=== PATIENT | female | born 1955 | race Caucasian/White ===

== ENCOUNTER → 2016-05-07 | Outpatient (CLI) | payer OTHER ==
--- NOTE | 2016-05-07 16:44 | MR ---
Unenhanced MRI of the Lumbar Spine Clinical History: 60-year-old female with pain and weakness in the right leg, and pain in both hips w ith diminished mobility. Evaluate for a right L5-S1 radiculopathy. ICD 10 Diagnostic Code: M54.16. Technique: Sagittal T1, T2, and STIR sequences were obtained from the T11-T12 disk interspace caudall y to the S3 level, and supplemented by stacked axial T1 and FSE T2-weighted sequences. Comparison Study: None. Findings: The vertebral body heights and posterior alignments are maintained. Bone marrow signal is n otable for some endplate degenerative changes at each lumbar level. The visualized prevertebral soft tissues are normal. The abdominal aorta is normal in size. There is some mild left pelvocaliectasis s een at the lower pole. The paraspinal musculature appears normal. The conus medullaris has a normal m orphology, terminating at the L1-2 level. There is no prevertebral or epidural hematoma. At the T11-T12 level, there is mild degenerative disc space narrowing with disk desiccation. There is no central canal or neural foraminal stenosis. At the T12-L1 level, there is a normal central canal, lateral recesses, and neural foramina. At the L1-L2 level, there is moderate degenerative disc space narrowing with degenerative disk desicc ation and ventral and circumferential dorsal disk bulging, slightly impinging upon the ventral thecal sac, however not causing any significant central canal stenosis. There is some mild facet hypertroph y, with no neural foraminal stenosis. At the L2-L3 level, there is preservation of disk space height and signal. There is no focal disk her niation, canal stenosis, or neural foraminal impingement. There is mildly ligamentum flavum thickenin g and moderate bilateral facet hypertrophy. At the L3-L4 level, there is some minimal circumferential disk bulging, without significant central c anal stenosis. Mild degenerative disc space narrowing is seen, with some mild disk desiccation. Moder ate bilateral facet hypertrophy is noted with some ligamentum flavum thickening. The neural foramina remain patent. At the L4-L5 level, there is mzokvhvc-gv-wuozak bilateral facet hypertrophy. There is mild degenerati ve disk space narrowing with mild disk desiccation, and there is some broad-based circumferential dis k bulging with minimal impingement on the caudal aspect of the left neural foramen. The right neural foramen is patent. At the L5-S1 level, there is moderate bilateral facet hypertrophy. There is some minimal broad-based circumferential disk bulging; however, this does not significantly impinge upon the lateral recesses or upon the neural foramina. The S1-2 level is normal. There may be a partially duplicated right S1-2 nerve root sleeve. At the S3 level, there is a T1-weighted hypointense and T2-weighted hyperintense 11 x [address] Impression: 1. There is degenerative disk disease at T11-T12, L1-L2, L3-L4, and L4-L5 with some circumferential d isk bulging seen at L1-L2, L3-L4, and L4-L5, but no significant central canal or neural foraminal imp ingement. 2. There is no evidence of a focal L5-S1 disk herniation, or mass effect upon the exiting or descendi ng nerve roots. 3. 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 4. Multilevel facet osteoarthropathy.
== END ==
LOC: FIMAGING 14:36
DX: M51.35 Other intervertebral disc degeneration, thoracolumbar region (principal); G96.8 Other specified disorders of central nervous system

== ENCOUNTER 2016-10-29 15:23 | Emergency (ER) | payer OTHER ==
[2016-10-29] MEDS ORDERED: methylPREDNISolone SOD SUCC 125 MG/2 ML VIAL IVP ONE (15:34)
[2016-10-29] MEDS ORDERED: KETOROLAC 30 MG/1 ML SDV IVP ONE (15:34)
[2016-10-29] MEDS ORDERED: NS 1,000 ML IV ONE (15:34)
[2016-10-29] MEDS ORDERED: HYDROmorphONE/DILAUDID 1 MG/ML SYR IVP ONE ×2 (15:34→16:22)
[2016-10-29] MEDS ORDERED: HYDROmorphONE/DILAUDID 1 MG/ML SYR ONE (15:36)
[2016-10-29] MEDS ORDERED: ONDANSETRON 4 MG/2 ML VIAL ONE (15:36)
[2016-10-29] MEDS ORDERED: ONDANSETRON 4 MG/2 ML VIAL IVP ONE (15:50)
[2016-10-29 16:11] LABS: % IMMATURE GRANULYOCYTES 0.3 % (0.0-1.1); ABSOLUTE IMMATURE GRANULOCYTES 0.03 10^3/uL (0.00-0.10); ADD DIFF? NO; ADD MORPH? NO; ADD SCAN? NO; ATYPICAL LYMPHOCYTE FLAG 10 (0-99); FRAGMENT RBC FLAG 0 (0-99); HEMATOCRIT 45.5 % (38.0-47.0); HEMOGLOBIN 15.4 g/dL (12.6-16.3); LEFT SHIFT FLG 0 (0-99); LIPEMIA HEMOLYSIS FLAG 90 (0-99); MEAN CELL HEMOGLOBIN 30.3 pg (27.9-34.1); MEAN CELL HEMOGLOBIN CONCENTR. 33.8 g/dL (32.4-36.7); MEAN CELL VOLUME 89.6 fL (81.5-99.8); MEAN PLATELET VOLUME 11.4 fL (8.7-11.7); PLATELET CLUMPS FLAG 0 (0-99); PLATELET COUNT 204 10^3/uL (150-400); RED BLOOD CELL COUNT 5.08 10^6/uL (4.18-5.33); RED CELL DISTRIBUTION WIDTH 13.4 % (11.5-15.2)
--- NOTE | 2016-10-29 16:28 | EDPHY ---
H & P Stated Complaint: l sided back and sciatic pain/weakness and numbness l leg - Personal History Current Tetanus/Diphtheria Vaccine: Yes Tetanus Vaccine Date: 2009 - Medical/Surgical History Hx Asthma: No Hx Chronic Respiratory Disease: No Hx Diabetes: No Hx Cardiac Disease: No Hx Renal Disease: No Hx Cirrhosis: No Hx Alcoholism: No Hx HIV/AIDS: No Hx Splenectomy or Spleen Trauma: No Other PMH: Hypothyriodism - Social History Smoking Status: Never smoked Constitutional: Initial Vital Signs Temperature (C) 36.8 C 10/29/16 15:26 Heart Rate 92 10/29/16 15:26 Respiratory Rate 17 10/29/16 15:26 Blood Pressure 174/96 H 10/29/16 15:26 O2 Sat (%) 98 10/29/16 15:26 O2 Delivery Mode Room Air O2 (L/minute) 2 Allergies/Adverse Reactions: No Known Allergies Allergy (Verified 10/29/16 15:24) Home Medications: Medication Instructions Recorded Levothyroxine [Synthroid 88 mcg 88 mcg PO DAILY06 06/26/12 (RX)] GABAPENTIN 10/29/16 MAGNESIUM 10/29/16 oxyCODONE IR [Oxycodone Ir (*)] 5 - 10 mg PO Q6 PRN #30 tab 10/29/16 Medical Decision Making - Diagnostics Imaging Results: Imaging Impressions Lumbar Spine MRI 10/29/16 15:35 Impression: Stable mild degenerative change and Tarlov cysts x6 months. Results discussed with Dr. Espinoza at 5:53 PM Pelvis MRI 10/29/16 15:35 Impression: Normal. No source for pain identified. Results discussed with Dr. Espinoza at 6:[address] 10/29/16 18:11 Impression: Suspect fracture through a degenerative cyst in the lateral left acetabulum. This involves a minority of the weightbearing portion of the left posterior acetabular surface. Results discussed with Dr. Raymond Espinoza Imaging: Discussed imaging studies w/ inbound call center representative Radiologist ED Course/Re-evaluation: CHIEF COMPLAINT: Leg pain HISTORY OF PRESENT ILLNESS: The patient is a 61 y/o female presents with severe left leg pain worsening throughout the day. She has had severe waxing and waning right leg pain for several months that has been worked up by her PCP and neurosurgeon with her most recent MRI imaging in June. They have been unable to diagnose a cause for her symptoms. She fell hard while on mission trip one month ago and significantly exacerbated her pain. She describes weakness secondary to pain particularly when lifting her leg. She is afraid she will fall due to weakness. Her pain today is exactly the same as previous except it has switched to her left leg rather than her right and has lasted much longer than ever before. Her pain starts in her hip and gluteal region and wraps around her leg down to her knee and foot. She has experienced "spells" of these symptoms frequently for the past several months, but states they usually improve after a couple hours. Her pain is aggravated severely by movement. No paresthesias, incontinence, fever. REVIEW OF SYSTEMS: A 10 point review of systems was performed and is negative with the exception of the elements mentioned in the history of present illness. PHYSICAL EXAM: HR, BP, O2 Sat, RR. Temp noted General Appearance: Alert, well hydrated, appropriate, and very uncomfortable- appearing. Head: Atraumatic without scalp tenderness or obvious injury Eyes: Pupils equal, round, reactive to light and accommodation, EOMI, no trauma , no injection. Nose: Atraumatic, no rhinorrhea, clear. Throat: Mucus membranes moist. Neck: Supple, non-tender, no lymphadenopathy. Respiratory: No retractions, no distress, no wheezes, and no accessory muscle use. Lungs are clear to auscultation bilaterally. Cardiovascular: Regular rate and rhythm, no murmurs, rubs, or gallops. Good capillary refill all extremities. Gastrointestinal: Abdomen is soft, non-tender, non-distended, no masses, no rebound, no guarding, no peritoneal signs. Musculoskeletal: Normal active ROM of all extremities, atraumatic. Neurological: Alert, appropriate, and interactive. Nonfocal neuro exam. Skin: No rashes, good turgor, no nodules on palpation. PAST MEDICAL HISTORY: Undiagnosed leg pain/neuropathy, MRI June 2016 PAST SURGICAL HISTORY: Denies SOCIAL HISTORY: RN at [employer]. PCP: Dr. Posada DIAGNOSTICS/PROCEDURES/CRITICAL CARE TIME: Lumbar and Pelvis MRI: negative Pelvis CT: lateral posterior acetabulum cysts with pathologic fractures DIFFERENTIAL DIAGNOSIS: sacroiliitis MEDICAL DECISION MAKING: This is a normally healthy 61 y/o female who presents with a several-month history of severe but intermittent right leg pain worsening acutely in her left leg today. Her symptoms have worsened since a fall 1 month ago and she has not received further imaging since that trauma. She feels weak like she will fall. She is quite uncomfortable on exam, but has normal strength as far as I am able to assess due to her pain. Plan for symptom management, UA, and MRI imaging of her pelvis and lumbar spine. 30mg IV Toradol, 1mg IV Dilaudid, 4mg IV Zofran, 125mg IV Solumedrol, and 1L IV NS administered. MRIs unremarkable. Pelvis CT ordered. CT reveals lateral posterior acetabulum cysts with pathologic fractures. I discussed these results with the patient. Ortho paged. 2034: Consulted with Dr. Garcia, orthopedist. He recommends weight-bearing as tolerated, pain meds, and outpatient follow up. She will likely require surgical correction at some point. I discussed this with the patient. Return precautions given. - Data Points Laboratory Results: Laboratory Results 10/29/16 15:50 10/29/16 15:50 10/29/16 10/29/16 10/29/16 18:05 15:50 15:50 WBC 8.62 10^3/uL 10^3/uL (3.80-9.50) RBC 5.08 10^6/uL 10^6/uL (4.18-5.33) Hgb 15.4 g/dL g/dL (12.6-16.3) Hct 45.5 % % (38.0-47.0) MCV 89.6 fL fL (81.5-99.8) MCH 30.3 pg pg (27.9-34.1) MCHC 33.8 g/dL g/dL (32.4-36.7) RDW 13.4 % % (11.5-15.2) Plt Count 204 10^3/uL 10^3/uL (150-400) MPV 11.4 fL fL (8.7-11.7) Neut % (Auto) 59.8 % % (39.3-74.2) Lymph % (Auto) 31.0 % % (15.0-45.0) [place] % (Auto) 7.3 % % (4.5-13.0) Eos % (Auto) 1.0 % % (0.6-7.6) Baso % (Auto) 0.6 % % (0.3-1.7) Nucleat RBC Rel Count 0.0 % % (0.0-0.2) Absolute Neuts (auto) 5.15 10^3/uL 10^3/uL (1.70-6.50) Absolute Lymphs (auto) 2.67 10^3/uL 10^3/uL (1.00-3.00) Absolute Monos (auto) 0.63 10^3/uL 10^3/uL (0.30-0.80) Absolute Eos (auto) 0.09 10^3/uL 10^3/uL (0.03-0.40) Absolute Basos (auto) 0.05 10^3/uL 10^3/uL (0.02-0.10) Absolute Nucleated RBC 0.00 10^3/uL 10^3/uL (0-0.01) Immature Gran % 0.3 % % (0.0-1.1) Immature Gran # 0.03 10^3/uL 10^3/uL (0.00-0.10) Sodium 141 mEq/L mEq/L (134-144) Potassium 4.3 mEq/L mEq/L (3.5-5.2) Chloride 103 mEq/L mEq/L (97-110) Carbon Dioxide 22 mEq/l mEq/l (22-31) Anion Gap 16 mEq/L mEq/L (8-16) BUN 18 mg/dL mg/dL (7-23) Creatinine 0.9 mg/dL mg/dL (0.6-1.0) Estimated GFR > 60 Glucose 93 mg/dL mg/dL (70-100) Calcium 10.3 mg/dL mg/dL (8.5-10.4) Urine Color YELLOW Urine Appearance HAZY Urine pH 7.0 (5.0-7.5) Ur Specific [place] 1.016 (1.002-1.030) Urine Protein NEGATIVE (NEGATIVE) Urine Ketones NEGATIVE (NEGATIVE) Urine Blood NEGATIVE (NEGATIVE) Urine Nitrate NEGATIVE (NEGATIVE) Urine Bilirubin NEGATIVE (NEGATIVE) Urine Urobilinogen NEGATIVE EU EU (0.2-1.0) Ur Leukocyte Esterase NEGATIVE (NEGATIVE) Urine Glucose NEGATIVE (NEGATIVE) Medications Given: Discontinued Medications Hydromorphone HCl (Dilaudid) 1 mg IVP EDNOW ONE Stop: 10/29/16 15:35 Last Admin: 10/29/16 15:50 Dose: 1 mg Hydromorphone HCl (Dilaudid) 1 mg IVP EDNOW ONE Stop: 10/29/16 16:23 Last Admin: 10/29/16 16:22 Dose: 1 mg Sodium Chloride (Ns) 1,000 mls @ 0 mls/hr IV ONCE ONE; Wide Open PRN Reason: Protocol Stop: 10/29/16 15:35 Last Admin: 10/29/16 15:50 Dose: 1,000 mls Ketorolac Tromethamine (Toradol) 30 mg IVP EDNOW ONE Stop: 10/29/16 15:35 Last Admin: 10/29/16 15:59 Dose: 30 mg Methylprednisolone Sodium Succinate (Solu-Medrol) 125 mg IVP EDNOW ONE Stop: 10/29/16 15:35 Last Admin: 10/29/16 15:57 Dose: 125 mg Ondansetron HCl (Zofran) 4 mg IVP EDNOW ONE Stop: 10/29/16 15:51 Last Admin: 10/29/16 15:52 Dose: 4 mg Oxycodone/Acetaminophen (Percocet 5/325) 2 tab PO EDNOW ONE Stop: 10/29/16 20:03 Last Admin: 10/29/16 20:05 Dose: 2 tab Departure - Departure Disposition: Home, Routine, Self-Care Clinical Impression: acetabulum cysts, Leg pain, bilateral Degenerative joint disease (DJD) of hip Qualifiers: Osteoarthritis type: unspecified Laterality: bilateral Qualified Code(s): M16.0 - Bilateral primary osteoarthritis of hip Condition: Good Instructions: Hip Pain (ED) Additional Instructions: 1. Weight bear as tolerated. Use crutches as needed to help you walk. 2. Use OxyIR as prescribed when needed for severe pain. 3. Follow up with Dr. Garcia, orthopedist, in one week. 4. Return to the ED for any worsening of condition. Work Excuse valid until cleared by orthopedic surgeon to work. Referrals: Danae Posada MD [Primary Care Provider] - As per Instructions Asya Garcia MD [Medical Doctor] - As per Instructions Stand Alone Forms: Work Excuse Prescriptions: oxyCODONE IR [Oxycodone Ir (*)] 5 - 10 mg PO Q6 PRN #30 tab PRN Reason: Pain, Severe Report Scribed for: Raymond Espinoza Report Scribed by: Sofía Fletcher Date of Report: 10/29/16 Time of Report: 18:16
[2016-10-29 16:50] LABS: ANION GAP 16 mEq/L (8-16); CALCIUM 10.3 mg/dL (8.5-10.4); CARBON DIOXIDE 22 mEq/l (22-31); CHLORIDE 103 mEq/L (97-110); CREATININE 0.9 mg/dL (0.6-1.0); GLOMERULAR FILTRATION RATE > 60; GLUCOSE 93 mg/dL (70-100); POTASSIUM 4.3 mEq/L (3.5-5.2); SODIUM 141 mEq/L (134-144)
[2016-10-29 17:59] VITALS: O2SAT 94
[2016-10-29 18:37] LABS: COLOR YELLOW; LEUKOCYTE ESTERASE,URINE NEGATIVE (NEGATIVE); NITRITE,URINE NEGATIVE (NEGATIVE)
[2016-10-29] MEDS ORDERED: OXYCODONE/APAP 5/325 TAB PO ONE (20:02)
[2016-10-29 20:09] VITALS: RESP 18; TEMP 98.2
[2016-10-29] MEDS ORDERED: OXYCODONE/APAP 5/325MG PREPACK#4 BTL TAKEHOME ONE (20:59)
[2016-10-29 21:08] VITALS: BP 144/72; PULSE 81
== END 2016-10-29 21:08 | disposition home or self-care (01) ==
DX: M79.605 Pain in left leg (principal); M79.604 Pain in right leg; M25.859 Other specified joint disorders, unspecified hip; M16.0 Bilateral primary osteoarthritis of hip; E86.9 Volume depletion, unspecified
CPT/HCPCS: 96374; J1170; J1885; J2405

== ENCOUNTER → 2016-11-18 | Outpatient (CLI) | payer OTHER | LOC: FIMAGING 06:43 | PROVIDERS: ATTEND Physician Assistant | DX: M16.0 Bilateral primary osteoarthritis of hip (principal); M24.851 Other specific joint derangements of right hip, not elsewhere classified; M24.852 Other specific joint derangements of left hip, not elsewhere classified; S73.192A Other sprain of left hip, initial encounter; S73.191A Other sprain of right hip, initial encounter ==

== ENCOUNTER → 2016-12-07 | Outpatient (CLI) | payer OTHER | LOC: FIMAGING 14:05 | PROVIDERS: ATTEND Family Medicine | DX: Z12.31 Encounter for screening mammogram for malignant neoplasm of breast (principal) | CPT/HCPCS: G0202 ==

== ENCOUNTER 2016-12-29 05:36 | Inpatient (IN) | payer OTHER ==
--- NOTE | 2016-12-16 12:11 | GHP ---
[f rep st] PREOP HISTORY AND PHYSICAL DATE OF ADMISSION: 12/29/2016 DIAGNOSIS: Right hip osteoarthritis. PLANNED SURGERY: Right hip total hip arthroplasty, anterior approach. HISTORY OF PRESENT ILLNESS: Patient is a 61-year-old female with a long history of right hip osteoa rthritis. She has failed conservative treatment and now opts for surgical intervention. PAST MEDICAL HISTORY: History of hypothyroidism. PAST SURGICAL HISTORY: Negative. MEDICATIONS: Gabapentin 300 mg t.i.d., levothyroxine 88 mcg daily, vitamin D 2000 units daily. ALLERGIES: No known drug allergies. SOCIAL HISTORY: Occasional alcohol use, no tobacco or drug use. PHYSICAL EXAMINATION: GENERAL: She is alert and oriented. NECK: Supple. No carotid bruits. CARDIAC: Regular rate and rhythm. Normal S1, S2. PULMONARY: Lungs are clear bilaterally. ABDOMEN: Normal bow el sounds. Nontender, nondistended. RIGHT HIP: Shows skin intact, no swelling. She has full pain destiney e range of motion. She walks with a slightly antalgic gait. Distally, compartments are soft, and she is neurovascularly intact. ASSESSMENT AND PLAN: Patient presents with a long history of right hip osteoarthritis secondary to near bone on bone appearance. After discussing the risks and benefits of surgery in detail today, shelli gibson opts for surgical intervention. /[id number]/MODL
[2016-12-29] MEDS ORDERED: ROPIVACAINE 0.2% 80 MG, EPINEPHrine 0.2 MG, KETOROLAC TROMETHAMINE 30 MG, morphINE 10 M... IU ONE (06:00)
[2016-12-29] MEDS ORDERED: TRANEXAMIC ACID 3,000 MG in NS 50 ML IRR ONE (06:00)
[2016-12-29] MEDS ORDERED: ceFAZolin 2 GM/DEXTROSE 100 ML IV ONE (06:00)
[2016-12-29] MEDS ORDERED: ACETAMINOPHEN 500 MG TAB PO ONE (06:00)
[2016-12-29] MEDS ORDERED: LR 1,000 ML IV SCH ×2 (06:00→10:30)
[2016-12-29] MEDS ORDERED: LR 1,000 ML IV ONE (06:44)
[2016-12-29] MEDS ORDERED: LIDOCAINE 1% 2 ML INJ ID PRN (06:44)
[2016-12-29] MEDS ORDERED: BUPIVACAINE/EPI 0.5% 30 ML SDV ONE (06:55)
[2016-12-29] MEDS ORDERED: POLYMYXIN B SULFATE 500,000 UNIT/10 ML SYR IRR ONE (06:55)
[2016-12-29] MEDS ORDERED: BACITRACIN 50,000 UNITS/10 ML SYR IRR ONE (06:55)
[2016-12-29] MEDS ORDERED: THROMBIN (BOVINE) 5,000 UNIT VIAL TP ONE (06:55)
[2016-12-29] MEDS ORDERED: CALCIUM CHLORIDE 1 GM/10 ML INJ ONE (06:55)
[2016-12-29] MEDS ORDERED: MIDAZOLAM 2 MG/2 ML VIAL ONE ×2 (07:02→08:06)
[2016-12-29] MEDS ORDERED: ALBUMIN 5% 250 ML BOTTLE IV ONE (07:12)
[2016-12-29] MEDS ORDERED: PROPOFOL/EMULSION 500 MG/50 ML BOTTLE IV ONE (07:14)
--- NOTE | 2016-12-29 07:54 | PDANEPAE ---
ANE Past Medical History - Cardiovascular History Hx Hypertension: No Hx Arrhythmias: No Hx Chest Pain: No Hx Coronary Artery / Peripheral Vascular Disease: No Hx CHF / Valvular Disease: No Hx Palpitations: No - Pulmonary History Hx COPD: No Hx Asthma/Reactive Airway Disease: No Hx Recent Upper Respiratory Infection: No Hx Oxygen in Use at Home: No Hx Sleep Apnea: No Sleep Apnea Screening Result - Last Documented: Negative - Neurologic History Hx Cerebrovascular Accident: No Hx Seizures: No Hx Dementia: No - Endocrine History Hx Diabetes: No Hypothyroid: Yes Endocrine History Comment: hypothyroidism - Renal History Hx Renal Disorders: No - Liver History Hx Hepatic Disorders: No - Neurological & Psychiatric Hx Hx Neurological and Psychiatric Disorders: No - Cancer History Hx Cancer: No - Congenital Disorder History Hx Congenital Disorders: No - GI History Hx Gastrointestinal Disorders: No Gastrointestinal History Comment: occ constipation uses daily fiber - Other Health History Other Health History: wears glasses. dental implants - Chronic Pain History Chronic Pain: Yes (bilateral hip pain, positional right shoulder pain) - Surgical History Prior Surgeries: tonsillectomy at 4 yo ANE Review of Systems - Exercise capacity METS (RN): 5 METS ANE Patient History - Allergies Allergies/Adverse Reactions: No Known Allergies Allergy (Verified 12/10/16 13:00) - Home Medications Home Medications: Levothyroxine [Synthroid 88 mcg (RX)] 88 mcg PO DAILY06 06/26/12 [Last Taken 04:30] Gabapentin [Neurontin] 600 mg PO BID 12/09/16 [Last Taken 12/29/16 04:30] Guar Gum [Benefiber/Nutrisource Fiber (*)] 2 tsp PO DAILY 12/09/16 [Last Taken 12/28/16] Melatonin [Melatonin 3 MG (*)] 3 mg PO HS 12/09/16 [Last Taken 12/29/16 04:30] - NPO status NPO Since - Liquids (Date): 12/29/16 NPO Since - Liquids (Time): 04:30 NPO Since - Solids (Date): 12/28/16 NPO Since - Solids (Time): 19:30 - Smoking Hx Smoking Status: Never smoked - Family Anes Hx Family Hx Anesthesia Complications: none ANE Labs/Vital Signs - Vital Signs Blood Pressure: 138/88 Heart Rate: 75 Respiratory Rate: 16 O2 Sat (%): 92 Height: 185.42 cm Weight: 95.254 kg ANE Physical Exam - Airway Neck exam: FROM Mallampati Score: Class 1 Mouth exam: normal dental/mouth exam - Pulmonary Pulmonary: no respiratory distress, no rales or rhonchi, clear to auscultation - Cardiovascular Cardiovascular: regular rate and rhythym, no murmur, rub, or gallop - ASA Status ASA Status: II
[2016-12-29] MEDS ORDERED: fentaNYL 100 MCG/2 ML INJ ONE ×4 (08:14→11:29)
[2016-12-29] MEDS ORDERED: PROPOFOL 200 MG/20 ML VIAL ONE ×2 (08:39→09:33)
[2016-12-29] MEDS ORDERED: PROMETHAZINE HCL 25 MG/ML INJ IVP PRN ×2 (09:35→10:23)
[2016-12-29] MEDS ORDERED: NALOXONE HCL 0.4 MG/ML INJ IVP PRN ×2 (09:35→10:27)
[2016-12-29] MEDS ORDERED: MEPERIDINE 25 MG/ML SYR IVP PRN (09:35)
[2016-12-29] MEDS ORDERED: LR 500 ML IV PRN (09:35)
[2016-12-29] MEDS ORDERED: METOCLOPRAMIDE 10 MG/2 ML VIAL IVP PRN ×2 (09:35→10:23)
[2016-12-29] MEDS ORDERED: ONDANSETRON 4 MG/2 ML VIAL IVP PRN (09:35)
[2016-12-29] MEDS ORDERED: DEXAMETHASONE 4 MG/ML VIAL IVP PRN (09:35)
[2016-12-29] MEDS ORDERED: TRANEXAMIC ACID 3,000 MG/50 ML BAG IRR ONE (09:46)
[2016-12-29] MEDS ORDERED: DIPHENOXYLATE/ATROPINE LOMOTIL 1 TAB PO PRN (10:23)
[2016-12-29] MEDS ORDERED: PHARMACY PAIN CONSULT 1 EA MISC PRN (10:23)
[2016-12-29] MEDS ORDERED: diphenhydrAMINE 25 MG CAP PO PRN (10:23)
[2016-12-29] MEDS ORDERED: PROMETHAZINE HCL 25 MG SUPPR PR PRN (10:23)
[2016-12-29] MEDS ORDERED: CYCLOBENZAPRINE 10 MG TAB PO PRN (10:23)
[2016-12-29] MEDS ORDERED: TAPENTADOL HCL 50 MG TAB PO PRN (10:23)
[2016-12-29] MEDS ORDERED: BISACODYL 10 MG SUPP PR PRN (10:23)
[2016-12-29] MEDS ORDERED: TEMAZEPAM 15 MG CAP PO PRN (10:23)
[2016-12-29] MEDS ORDERED: POLYETHYLENE GLYCOL 3350 17 GM PKT PO PRN (10:23)
[2016-12-29] MEDS ORDERED: MAGNESIUM HYDROXIDE 30 ML UDCUP PO PRN (10:23)
[2016-12-29] MEDS ORDERED: LACTULOSE 20 GM/30 ML UDCUP PO PRN (10:23)
[2016-12-29] MEDS ORDERED: ONDANSETRON DISINTEGRATING 4 MG TAB PO PRN (10:23)
--- NOTE | 2016-12-29 10:23 | POSTOPPROG ---
Post Op Note Date of Operation: 12/29/16 Surgeon: Asya Garcia Meringuer: kat Anesthesiologist: george Anesthesia: Epidural, IV Sedation Pre-op Diagnosis: r hip oa Procedure: r dany with fluoro Inf/Abcess present in the surg proc area at time of surgery?: No Depth: Deep Incisional (Fascial) EBL: 100-500
[2016-12-29] MEDS: fentaNYL 100 MCG/2 ML INJ IVP PRN ×5 (10:24→11:40)
--- NOTE | 2016-12-29 10:27 | PDHPUP ---
History & Physical Update H&P update statement: This history and physical update is based on an assessment of the patient which was completed after admission or registration (within 24 hours), but prior to the surgery/procedure. H&P update: H&P reviewed & patient examined, no change in patient's condition since H&P completed
[2016-12-29] MEDS: HYDROmorphONE/DILAUDID 1 MG/ML SYR IVP PRN ×3 (10:40→11:05)
[2016-12-29] MEDS ORDERED: HYDROmorphONE/DILAUDID 1 MG/ML SYR ONE (10:44)
--- NOTE | 2016-12-29 10:54 | POSTANESTH ---
Post Anesthetic Evaluation Cardiovascular Status: Normal, Stable Respiratory Status: Normal, Stable Level of Consciousness/Mental Status: Can Participate in Eval Pain Control: Adequate, Prn Tx Ordered Nausea/Vomiting Control: Adequate, Prn Tx Ordered Complications Possibly Related to Anesthesia: None Noted
--- NOTE | 2016-12-29 11:22 | GOP ---
[f rep st] OPERATIVE REPORT DATE OF OPERATION: 12/29/2016 SURGEON: Asya Garcia MD DIRECTOR OF BILLING: Jason Stringer, Certified SA, whose presence was medically necessary. ANESTHESIA: Epidural plus IV sedation. PREOPERATIVE DIAGNOSIS: Right hip osteoarthritis. POSTOPERATIVE DIAGNOSIS: Right hip osteoarthritis. PROCEDURE PERFORMED: Right total hip arthroplasty with fluoroscopy. FINDINGS: INDICATIONS: This is a 61-year-old female with a long history of bilateral hip pain worsening with use and with time. Despite multiple conservative measures, MRI exams revealed significant osteoarth ritic changes within the hip. She wishes to have surgery in order to resolve the problem. DESCRIPTION OF PROCEDURE: Patient was brought to the operating room after the right side had been i dentified as the correct side by the patient, nurse, and physician. Once in the operating room, she was given an epidural nerve block and then placed on traction table with a well-padded peroneal pos t. Both legs were placed in appropriate leg chaves. Fluoroscopy was used to ensure proper position ing of the pelvis. Once this was ensured, the arch table was locked into place onto the floor. The right hip and flank were then sterilely prepped and draped in the usual fashion using a GSI solutio n. Once prepped and draped, a linear incision was made, starting 2 cm lateral and inferior to the A SIS and heading in a 15-degree posterior direction with sharp dissection carried down through skin a nd subcutaneous layers, identifying the fascial sheath below. Bleeding was controlled using electro cautery. Linear incision was made in the fascial sheath overlying the TFL with blunt dissection med ial to the TFL to retract it laterally, identifying the circumflex vessels at the bottom of the schmitt th. Circumflex vessels were cauterized. Deeper dissection was carried through the fascia overlying the hip capsule and blunt Cobra retractors were used and will be placed on the superior and inferio r portion of the hip capsule. A T-incision was made through the hip capsule with sutures placed in superior and inferior portions of that capsule with the Cobra retractors replaced to be intra capsul ar and a 3rd retractor placed on the anterior portion of the acetabulum in order to gain further acc ess to the hip itself. Oscillating saw was used to cut across the femoral neck, just above the inte rtrochanteric line. The leg was externally rotated 40 degrees and a corkscrew was used to remove th e femoral head in its entirety. The labrum around the acetabulum was removed, as well as a pulvinar at the base of the acetabulum that had been measured to 47 mm. Therefore, starting with a 47 mm re amer, and then going up to a 51 before achieving good bleeding bone and a good rim fit, its position was checked under fluoroscopy. A trial was put into place and noted to fit securely, therefore, a 52 mm Titanium cluster hole shell from [employer] was put into place. Its position was checked under f luoroscopy. Once in proper position, a screw was placed in superior and posterior portions of the c up, along with a manhole cover at the base. The 52 x 28 liner was then placed within the acetabulum . Once locked into place, its position was checked and noted to be secure. Attention was then turn ed to the proximal femur. The femur was externally rotated to 90 degrees. Soft tissue dissection w as done to pull the capsule off the anterior portion of the femoral neck and the superior portion of the femoral neck. Once an adequate release had been done, the leg was able to be dropped into exte nsion and adduction with a curette used to remove the medullary bone from the proximal portion of th e femur and a rongeur used to remove the superior portion of the femoral neck. Canal finder was pas sed into the femoral canal and then, sequential broaches were used up to a size 5, which was noted t o fit securely. Trial reduction was performed and noted to have good fill of the proximal femur. T herefore, the hip was redislocated and an Accolade II 127-degree neck size 5 stem from [place] was p ut into place, noted to fit securely. Multiple trials were performed and noted that a -2.7 head, no t only gave good stability, but good length through the leg. Therefore, the trunnion was washed and dried, and a 28- 2.7 ceramic head was put into place. Hip was reduced. Joint cocktail had been in jected around the acetabular capsule along the proximal femur. The capsule was then closed using 0 Vicryl suture in a [id number] type stitch with plasma gel placed intra-articularly. Tranexamic acid was then placed within the wound itself with the fascial layer of the TFL closed in a running whipstitch with plasma gel placed in the sheath of the TFL. Once finished, 0 Vicryl and 2-0 Vicryl suture were used to close subcutaneous layers with 30 cc of Marcaine infused around the actual skin wound itself and a 3-0 V-Loc suture in a running subcuticular stitch was used to close the skin. Th e wound was dressed with Steri-Strips, Xeroform, 4 x 4, and Tegaderm. She was completely undraped i n the operating room. Leg lengths were noted to be nearly equal. She was transferred [facility] a [facility], and sent to recovery room in good condition. /[id number]/MODL
[2016-12-29] MEDS: traMADol 50 MG TAB PO SCH ×2 (13:43→17:49)
[2016-12-29] MEDS: KETOROLAC 30 MG/1 ML SDV IVP SCH ×2 (13:43→17:49)
[2016-12-29] MEDS: ACETAMINOPHEN 325 MG TAB PO SCH ×2 (13:43→17:48)
[2016-12-29] MEDS: ceFAZolin 2 GM/DEXTROSE 100 ML IV SCH (16:08)
[2016-12-29] MEDS: oxyCODONE IR 5 MG TAB PO PRN (21:38)
[2016-12-29] MEDS: FAMOTIDINE 20 MG TAB PO SCH (21:41)
[2016-12-29] MEDS: GABAPENTIN 300 MG CAP PO SCH (21:42)
[2016-12-29] MEDS: SENNOSIDES/DOCUSATE SODIUM TAB PO SCH (21:42)
[2016-12-30] MEDS: ceFAZolin 2 GM/DEXTROSE 100 ML IV SCH (00:05)
[2016-12-30] MEDS: ACETAMINOPHEN 325 MG TAB PO SCH ×3 (00:05→12:06)
[2016-12-30] MEDS: traMADol 50 MG TAB PO SCH ×3 (00:06→12:06)
[2016-12-30] MEDS: KETOROLAC 30 MG/1 ML SDV IVP SCH ×3 (00:08→12:07)
[2016-12-30 04:25] VITALS: TEMP 98.6
[2016-12-30] MEDS ORDERED: LEVOTHYROXINE 88 MCG TAB PO SCH (06:00)
[2016-12-30 06:04] LABS: HEMATOCRIT 32.9 % (38.0-47.0); HEMOGLOBIN 11.1 g/dL (12.6-16.3)
[2016-12-30 08:39] VITALS: BP 108/63; PULSE 67; RESP 18; O2SAT 95
[2016-12-30] MEDS: SENNOSIDES/DOCUSATE SODIUM TAB PO SCH (08:45)
[2016-12-30] MEDS: FAMOTIDINE 20 MG TAB PO SCH (08:45)
[2016-12-30] MEDS: GABAPENTIN 300 MG CAP PO SCH (08:45)
[2016-12-30] MEDS: oxyCODONE IR 5 MG TAB PO PRN (08:46)
[2016-12-30] MEDS ORDERED: RIVAROXABAN 10 MG TAB PO SCH (09:00)
[2016-12-30] MEDS ORDERED: FERROUS SULFATE 140 MG TAB.ER PO SCH (09:00)
--- NOTE | 2016-12-30 12:22 | ASMTCASEMG ---
Living Arrangements What is your living arrangement? Who do you live Answers: With Partner with? Discharge Plan Comments Coordination Status Comments Notes: OT clears pt, PT rec HHC vs outpat, PT requests [facility]. Confirmed address, phone, talked about home b ound status. Laura @ [facility] notified, can staff pt. Date Signed: 12/30/2016 12:21 PM Electronically Signed By:Christen Yañez
--- NOTE | 2016-12-30 12:38 | SOAPPROG ---
SOAP Progress Note Assessment/Plan: Assessment: Plan: - D/C home today 12/30/16 12:37 Subjective: Doing well, ready to d/c home Objective: Vital Signs Temp Pulse Resp BP Pulse Ox 37.0 C 67 18 108/63 95 12/30/16 04:00 12/30/16 08:33 12/30/16 08:33 12/30/16 08:33 12/30/16 08:33 Laboratory Results 12/30/16 04:32 12/29/16 12/30/16 12/31/16 05:59 05:59 05:59 Intake Total 2100 Output Total 2700 Balance -600 Dressing, CDI, calf neg DVT, NVI - Time Spent With Patient Time Spent With Patient: 10 - Pending Discharge Pending Discharge Within 24 Hours: Yes Pending Discharge Within 48 Hours: No Pending Discharge Date: 12/31/16 Pending Discharge Time: 11:00 ICD10 Worksheet Patient Problems: Problems Problem Status Onset Arthritis of right hip Acute - ICD10 Problem Qualifiers (1) Arthritis of right hip
--- NOTE | 2016-12-30 12:39 | PDIAF ---
- Diagnosis Code Status: Full Code - Medication Management Discharge Medications: Medications to Continue on Transfer Levothyroxine [Synthroid 88 mcg (*)] 88 mcg PO DAILY06 06/26/12 [Last Taken 04:30] Gabapentin [Neurontin] 600 mg PO BID 12/09/16 [Last Taken 12/29/16 04:30] Guar Gum [Benefiber/Nutrisource Fiber (*)] 2 tsp PO DAILY 12/09/16 [Last Taken 12/28/16] Melatonin [Melatonin 3 MG (*)] 3 mg PO HS 12/09/16 [Last Taken 12/29/16 04:30] Acetaminophen [Tylenol 325mg (*)] 650 mg PO Q6HRS #0 tab 12/30/16 [Last Taken Unknown] Rivaroxaban [Xarelto 10mg (*)] 10 mg PO DAILY #0 tab 12/30/16 [Last Taken Unknown] oxyCODONE IR [Oxycodone Ir (*)] 5 - 10 mg PO Q3HRS PRN #0 tab 12/30/16 [Last Taken Unknown] traMADol [Ultram 50 mg (*)] 50 mg PO Q6HRS #0 tab 12/30/16 [Last Taken Unknown] Discharge Medications: Refer to the Discharge Home Medication list for PRN reason. PICC Care - Routine: N/A - Orders Services needed: Physical Therapy Diet Recommendation: no restrictions on diet Diet Texture: Regular Texture Diet - Follow Up Care Current Providers and Referrals: Zain Swain [Primary Care Provider] -
--- NOTE | 2016-12-30 15:43 | ASDISCHSUM ---
Discharge Information Plan Status:Home with Home Health Medically Cleared to Leave: Discharge Date:12/30/2016 01:41 PM CM D/C Disposition:Home Health Service ADT D/C Disposition:Home, Routine, Self-Care Projected Discharge Date:12/30/2016 05:00 PM Transportation at D/C:Family Discharge Delay Reason: Follow-Up Date:12/30/2016 05:00 PM Discharge Slot: Final Diagnosis: Placement Information Referral Type:*Home Health Care Services Referral ID:[id number] Provider Name:[facility] Address 1:[address] [place] [address] Address 2: City:[place] Selection Factors: State:[place] Patient Contact Information Contact Name:NAIMA Relationship: Address:[address] [place] Work Phone: [facility]:DARBY Alternate Phone: State/Zip Code:[place] [address] Email: Financial Information Financial Class:[facility] Primary Plan Desc:[facility] Primary Plan Number:[id number] Secondary Plan Desc: Secondary Plan Number: Assessment Information [facility] Initial CM Assessment Living Arrangements What is your living Answers: With Partner arrangement? Who do you live with? Discharge Plan Comments Coordination Status Comments Notes: KAMI mary pt, PT rec HHC vs outpat, PT requests [facility]. Confirmed address, phone, talked about home bound status. Laura @ [facility] notified, can staff pt. Date Signed: 12/30/2016 12:21 PM Electronically Signed By:Christen Yañez Intervention Information
== END 2016-12-30 13:41 | disposition home health service (06) | DRG 470 ==
LOC: F3N 05:36
PROVIDERS: ADMIT Orthopaedic Surgery; ATTEND Orthopaedic Surgery
DX: M16.11 Unilateral primary osteoarthritis, right hip (principal); E03.9 Hypothyroidism, unspecified
CPT/HCPCS: 97116-GP; 97161-GP; 97165-GO; 97530-GP; C1713; J0171; J0690; J1170; J1885; J2250; J2704; J2795; J3010; P9041

== ENCOUNTER 2017-11-17 08:15 | Inpatient (IN) | payer OTHER ==
[2018-02-16] MEDS ORDERED: ACETAMINOPHEN 325 MG TAB PO ONE (05:37)
[2018-02-16] MEDS ORDERED: FAMOTIDINE 20 MG TAB PO ONE (05:37)
[2018-02-16] MEDS ORDERED: ceFAZolin 2 GM/DEXTROSE 100 ML IV ONE (05:37)
[2018-02-16] MEDS ORDERED: DEXAMETHASONE 4 MG/ML VIAL IVP ONE (05:37)
[2018-02-16] MEDS ORDERED: LR 1,000 ML IV ONE (05:39)
[2018-02-16] MEDS ORDERED: LIDOCAINE 1% 2 ML INJ ID PRN (05:39)
[2018-02-16] MEDS ORDERED: TRANEXAMIC ACID 3,000 MG in NS (SYRINGE) 50 ML IRR ONE (06:00)
[2018-02-16] MEDS ORDERED: ROPIVACAINE 0.2% 80 MG, EPINEPHrine 0.2 MG, KETOROLAC TROMETHAMINE 30 MG in SYRINGE 0 ML IU ONE (06:00)
[2018-02-16] MEDS ORDERED: TRANEXAMIC ACID 3,000 MG/50 ML BAG IRR ONE (06:57)
[2018-02-16] MEDS ORDERED: MIDAZOLAM 2 MG/2 ML VIAL ONE (07:34)
[2018-02-16] MEDS ORDERED: LIDOCAINE 2% 2 ML INJ ONE (07:36)
[2018-02-16] MEDS ORDERED: BUPIVACAINE/DEXTROSE 7.5MG/ML 2 ML SPINAL AMP SP ONE (07:36)
[2018-02-16] MEDS ORDERED: PROPOFOL/EMULSION 500 MG/50 ML BOTTLE IV ONE (07:36)
[2018-02-16] MEDS ORDERED: MIDAZOLAM 2 MG/2 ML VIAL IVP ONE (07:39)
--- NOTE | 2018-02-16 07:41 | PDANEPAE ---
ANE History of Present Illness left hip OA for L LLUVIA ANE Past Medical History - Cardiovascular History Hx Hypertension: No Hx Arrhythmias: No Hx Chest Pain: No Hx Coronary Artery / Peripheral Vascular Disease: No Hx CHF / Valvular Disease: No Hx Palpitations: No - Pulmonary History Hx COPD: No Hx Asthma/Reactive Airway Disease: No Hx Recent Upper Respiratory Infection: No Hx Oxygen in Use at Home: No Hx Sleep Apnea: No Sleep Apnea Screening Result - Last Documented: Negative - Neurologic History Hx Cerebrovascular Accident: No Hx Seizures: No Hx Dementia: No - Endocrine History Hx Diabetes: No Hypothyroid: Yes Obesity: no Endocrine History Comment: hypothyroidism - Renal History Hx Renal Disorders: No - Liver History Hx Hepatic Disorders: No - Neurological & Psychiatric Hx Hx Neurological and Psychiatric Disorders: No - Cancer History Hx Cancer: No - Congenital Disorder History Hx Congenital Disorders: No - GI History Hx Gastrointestinal Disorders: No Gastrointestinal History Comment: occ constipation uses daily fiber - Other Health History Other Health History: wears glasses. dental implants - Chronic Pain History Chronic Pain: Yes (bilateral hip pain, positional right shoulder pain) - Surgical History Prior Surgeries: tonsillectomy at 4 yo ANE Review of Systems Review of Systems: - Exercise capacity METS (RN): 4 METS ANE Patient History - Allergies Allergies/Adverse Reactions: No Known Allergies Allergy (Verified 12/10/16 13:00) - Home Medications Home medications: home medication list seen and reviewed Home Medications: Levothyroxine [Synthroid 88 mcg (*)] 88 mcg PO DAILY06 06/26/12 [Last Taken 04:00] Gabapentin [Neurontin] 600 mg PO TID 12/09/16 [Last Taken 02/16/18 04:00] Guar Gum [Benefiber/Nutrisource Fiber (*)] 2 tsp PO DAILY 12/09/16 [Last Taken 02/02/18] Melatonin [Melatonin 3 MG (*)] 3 mg PO HS 12/09/16 [Last Taken 02/09/18] Aspirin EC [Aspirin EC 81 mg (*)] 81 mg PO DAILY 01/25/18 [Last Taken 02/02/18] Carboxymethylcellulose 1% [Refresh Celluvisc] 1 drop EACHEYE BID PRN 01/25/18 [ Last Taken 02/15/18] Famotidine [Pepcid 20 MG (*)] 20 mg PO DAILY PRN 01/25/18 [Last Taken 02/15/18] Herbals/Supplements -Info Only 1 ea PO DAILY 01/25/18 [Last Taken 02/02/18] Davenport-3 Fatty Acids [Fish Oil 1000 mg (*)] 2,000 mg PO DAILY 01/25/18 [Last Taken 02/02/18] - NPO status NPO Since - Liquids (Date): 02/16/18 NPO Since - Liquids (Time): 05:50 NPO Since - Solids (Date): 02/15/18 NPO Since - Solids (Time): 20:00 - Smoking Hx Smoking Status: Never smoked - Family Anes Hx Family Hx Anesthesia Complications: none ANE Labs/Vital Signs - Vital Signs Blood Pressure: 141/79 Heart Rate: 76 Respiratory Rate: 16 O2 Sat (%): 93 Height: 185.42 cm Weight: 86.636 kg ANE Physical Exam - Airway Neck exam: FROM Mallampati Score: Class 2 Mouth exam: normal dental/mouth exam - Pulmonary Pulmonary: no respiratory distress - Cardiovascular Cardiovascular: regular rate and rhythym - ASA Status ASA Status: II ANE Anesthesia Plan Anesthesia Plan: spinal
[2018-02-16] MEDS ORDERED: fentaNYL 100 MCG/2 ML INJ ONE (08:24)
--- NOTE | 2018-02-16 08:30 | POSTANESTH ---
Post Anesthetic Evaluation Cardiovascular Status: Normal, Stable Respiratory Status: Normal, Stable Level of Consciousness/Mental Status: Can Participate in Eval, Alert and Oriented Pain Control: Adequate, Prn Tx Ordered Nausea/Vomiting Control: Adequate, Prn Tx Ordered Complications Possibly Related to Anesthesia: None Noted
[2018-02-16] MEDS ORDERED: fentaNYL 100 MCG/2 ML INJ IVP PRN (08:56)
[2018-02-16] MEDS ORDERED: ONDANSETRON 4 MG/2 ML VIAL IVP PRN ×2 (08:56→09:22)
[2018-02-16] MEDS ORDERED: oxyCODONE IR 5 MG TAB PO PRN (08:56)
[2018-02-16] MEDS ORDERED: LR 500 ML IV PRN (08:56)
[2018-02-16] MEDS ORDERED: HYDROmorphONE/DILAUDID 2 MG/ML INJ IVP PRN (08:56)
[2018-02-16] MEDS ORDERED: NALOXONE HCL 0.4 MG/ML INJ IVP PRN (08:56)
[2018-02-16] MEDS ORDERED: ALBUTEROL 3 ML DEYVIAL IH PRN (08:56)
[2018-02-16] MEDS ORDERED: HYDROCODONE/APAP 5/325 TAB PO PRN (08:56)
[2018-02-16] MEDS ORDERED: ACETAMINOPHEN 500 MG TAB PO PRN (08:56)
[2018-02-16] MEDS ORDERED: CYCLOBENZAPRINE 10 MG TAB PO PRN (09:22)
[2018-02-16] MEDS ORDERED: PROMETHAZINE HCL 25 MG/ML INJ IVP PRN (09:22)
[2018-02-16] MEDS ORDERED: ONDANSETRON DISINTEGRATING 4 MG TAB PO PRN (09:22)
[2018-02-16] MEDS ORDERED: TEMAZEPAM 15 MG CAP PO PRN (09:22)
[2018-02-16] MEDS ORDERED: POLYETHYLENE GLYCOL 3350 17 GM PKT PO PRN (09:22)
[2018-02-16] MEDS ORDERED: METOCLOPRAMIDE 10 MG/2 ML VIAL IVP PRN (09:22)
[2018-02-16] MEDS ORDERED: PROMETHAZINE HCL 25 MG SUPPR PR PRN (09:22)
[2018-02-16] MEDS ORDERED: LACTULOSE 20 GM/30 ML UDCUP PO PRN (09:22)
[2018-02-16] MEDS ORDERED: MAGNESIUM HYDROXIDE 30 ML UDCUP PO PRN (09:22)
[2018-02-16] MEDS ORDERED: diphenhydrAMINE 25 MG CAP PO PRN (09:22)
[2018-02-16] MEDS ORDERED: BISACODYL 10 MG SUPP PR PRN (09:22)
[2018-02-16] MEDS ORDERED: DIPHENOXYLATE/ATROPINE LOMOTIL 1 TAB PO PRN (09:22)
--- NOTE | 2018-02-16 09:22 | POSTOPPROG ---
Post Op Note Date of Operation: 02/16/18 Surgeon: Leyda Chauhan Eligibility And Occupancy Interviewer: anne chauhan Anesthesiologist: dr. kaminski Anesthesia: Spinal Pre-op Diagnosis: Left hip OA Post-op Diagnosis: same Indication: left hip pain Procedure: L LLUVIA ant approach Findings: severe hip OA Inf/Abcess present in the surg proc area at time of surgery?: No EBL: 100-500
[2018-02-16] MEDS ORDERED: Carboxymethylcellulose 1% [Refresh Celluvisc (*)] 1 DROP EACHEYE PRN (09:24)
[2018-02-16] MEDS ORDERED: LR 1,000 ML IV SCH (09:30)
[2018-02-16] MEDS: oxyCODONE IR 5 MG TAB PO PRN ×2 (10:28→17:51)
--- NOTE | 2018-02-16 11:30 | PDMN ---
Medical Necessity Medical necessity: Pt meets inpt criteria per MD order and [facility] S-560, Hip Arthroplasty. 62 y/o admitted for L LLUVIA, CPT 63913, auth # [id number], Medicare inpt only list.
[2018-02-16] MEDS: ACETAMINOPHEN 325 MG TAB PO SCH ×2 (12:50→17:51)
[2018-02-16 15:18] VITALS: BP 124/82
[2018-02-16] MEDS ORDERED: GABAPENTIN 300 MG CAP PO SCH (16:00)
[2018-02-16] MEDS ORDERED: ceFAZolin 2 GM/DEXTROSE 100 ML IV SCH (16:00)
[2018-02-16] MEDS ORDERED: ASPIRIN 81 MG CHEWABLE TAB PO SCH (21:00)
[2018-02-16] MEDS ORDERED: SENNOSIDES/DOCUSATE SODIUM TAB PO SCH (21:00)
[2018-02-16] MEDS ORDERED: FAMOTIDINE 20 MG TAB PO SCH (21:00)
[2018-02-17] MEDS ORDERED: LEVOTHYROXINE 88 MCG TAB PO SCH (06:00)
--- NOTE | 2018-02-17 09:29 | GDS ---
ADMISSION DIAGNOSIS: Left hip osteoarthritis. DISCHARGE DIAGNOSIS: Left hip osteoarthritis. PROCEDURE: Left total hip arthroplasty. VTE PROPHYLAXIS: Recommend aspirin 81 mg twice daily for 4 weeks. BRIEF DESCRIPTION OF HOSPITAL STAY: Patient was admitted for an elective joint arthroplasty. The melida deutsch tolerated the procedure well and has passed physical therapy. The patient was given appropriat e antibiotic prophylaxis and venous thromboembolism prophylaxis. The patient's pain was well control led on oral pain medication, patient was holding down food, and had urinated. Decision was made to d ischarge the patient. The patient was given post-operative prescriptions pre-operatively. PLAN: To follow up as scheduled with Dr. Mccoy's office March 10 at 9:30 a.m. /[id number]/MODL
--- NOTE | 2018-02-17 12:21 | GOP ---
DATE OF OPERATION: 02/16/2018 SURGEON: Jihan Mccoy MD NEUROSURGEON: Jihan Mccoy MD. MANAGER DIVISION: Yasmin Mccoy P.A.-C. ANESTHESIA: PREOPERATIVE DIAGNOSIS: Left hip osteoarthritis. POSTOPERATIVE DIAGNOSIS: Left hip osteoarthritis. PROCEDURE PERFORMED: Total hip arthroplasty with x-ray. FINDINGS: ESTIMATED BLOOD LOSS: 200 cc. INDICATIONS: The patient has progressively worsening arthritis of the hip which has failed medical management. The patient understands the treatment options including continued non-operative care and has selected surgical intervention. The patient has decided to undergo total hip arthroplasty via the direct anterior approach, understanding the risks of the procedure including , but not limited to, neurovascular injury, infection, persistent pain, component wear and loosening, deep venous thrombosis, pulmonary embolism, limb length inequality, hip instability (including dislocation), and intra-operative fractures. DESCRIPTION OF PROCEDURE: After proper identification of the patient including verification and marking the surgical site, the patient was brought to the operating room and placed in the supine position. All bony prominences were well padded. Anesthesia was induced without complication and intravenous prophylactic antibiotics were administered prior to skin incision. The operative leg was placed in the Trumpf Arch table extension and the well leg in a Yellofin leg chaves. The patient was prepped and draped in the usual sterile fashion. The C-arm was draped for intra-operative fluoroscopy to check acetabular position, femoral component position including leg length and femoral offset. Attention was then drawn to surgical exposure of the hip. An incision was made with a #10 Bard Gurwinder blade starting 3 cm lateral and 3 cm distal to the anterior superior iliac spine measuring 8-10 cm and coursing distally toward the greater trochanter. The skin and subcutaneous tissues were divided sharply down to the fascia shaheed. The fascia shaheed was incised in line with the skin incision exposing the underlying tensor fascia shaheed muscle. The muscle was bluntly elevated from the fascia and the first extracapsular Cobra retractor was placed laterally at the junction of the superior femoral neck and greater trochanter. The lateral femoral circumflex vessels were identified, cauterized , and divided with the Aquamantys bipolar cautery. The deep investing fascia of the TFL was divided to allow proper mobilization of the muscle preventing damage during the retraction. The reflected head of the rectus femoris muscle was elevated off the anterior hip capsule and a medial Cobra retractor was placed just proximal to the lesser trochanter. The anterior capsulotomy was made sharply from the superolateral acetabulum to the saddle junction of the superior femoral neck and greater trochanter, then coursing inferomedial towards the lesser trochanter. The retractors were then placed in the intracapsular position for femoral neck osteotomy. Corresponding to pre-operative templating, the osteotomy was made with the oscillating saw carefully protecting the greater trochanter and soft tissues. The femoral head was removed from the acetabulum with a corkscrew and confirmed to be severely arthritic with exposed bone, deformity and osteophytes. Similar findings were confirmed in the acetabulum. The Arch table extension was then placed in 40 degrees external rotation. Attention was then drawn to the acetabular preparation. After placement of the anterior and posterior Cobra retractors outside the labrum and intracapsular, the circumferential labrum was removed sharply. The foveal contents were then removed and hemostasis obtained with cautery. The first reamer selected was sized using the removed femoral head. Reaming began with medialization and then commenced in 2 mm increments at 45 degrees of abduction and 15 degrees of anteversion using fluoroscopic navigation. Reaming ceased 1 mm less than the definitive acetabular component and corresponded to the pre-operative templating. The final acetabular component was inserted using fluoroscopy to achieve proper orientation yielding excellent purchase and stability in the acetabulum. The final acetabular liner was then placed and its seating confirmed. Attention was then turned to the femur. The Arch table extension was placed in extension and adduction, delivering the osteotomized femoral neck into the wound. A 2-pronged femoral elevator was placed at the calcar and another at the tip of the greater trochanter. The posterolateral capsule was released with cautery allowing mobilization of the femur lateral and anterior for preparation. The external rotators were visualized and preserved. A curette and rongeur were used to open the starting point for broaching. Serial broaching started with the #0 broach and ended with the broach that exhibited excellent fit in the proximal femur. A change in pitch during mallet strikes was accompanied by the inability to advance the broach any further. The trial reduction was performed and fluoroscopic navigation was utilized to check limb length. Adjustments were made to equalize limb length accordingly. After the final trials were accepted they were removed and the wound was copiously lavaged. The femoral component was seated to the same depth as the final broach and the femoral head was impacted onto the clean trunnion. The hip was then reduced for the final time and once more fluoroscopy was used to check that limb length equality was achieved. The wound was irrigated and closed in layers, the fascia shaheed with 2-0 Quill, the subcutaneous tissue with 2-0 Quill, and the skin with Dermabond. Sterile dressings were applied. Final sharps and sponge counts were accurate. The patient was then transferred to a hospital bed and brought to the recovery room in stable condition. IMPLANTS: Accolade II, size 6 x 127. Acetabular component is a Trident II 50 mm. The liver is a Trident X3, 32 mm. The head is Biolox Delta _32 mm -4. /[id number]/MODL MTDD
== END 2018-02-16 18:17 | disposition home or self-care (01) | DRG 470 ==
LOC: F3N 02-16 05:34
PROVIDERS: ADMIT Orthopaedic Surgery; ATTEND Orthopaedic Surgery
PROC: 0SRB04Z Replacement of Left Hip Joint with Ceramic on Polyethylene Synthetic Substitute, Open Approach (ICD-10-PCS; principal; 2018-02-16 08:00)
DX: M16.12 Unilateral primary osteoarthritis, left hip (principal); E03.9 Hypothyroidism, unspecified
CPT/HCPCS: 97161-GP; J0171; J0690; J1100; J1885; J2250; J2704; J2795; J3010

== ENCOUNTER → 2018-05-05 | Outpatient (CLI) | payer OTHER | LOC: FIMAGING 14:29 | PROVIDERS: ATTEND Physician Assistant | DX: M21.761 Unequal limb length (acquired), right tibia (principal); M17.0 Bilateral primary osteoarthritis of knee ==